=== PATIENT | female | born 1970 | race Caucasian/White ===

== ENCOUNTER 2017-08-04 01:47 | Emergency (ER) | payer OTHER ==
[~2017-08-04] VITALS: Ht 160 cm; Wt 72.6 kg
--- NOTE | 2017-08-04 02:42 | NUR ---
DR PANCHO SALAZAR MD AT BEDSIDE FOR MSE.
--- NOTE | 2017-08-04 02:46 | NUR ---
PT C/O SOB AND "CHEST TIGHTNESS". STATES SHE HAS A HX OF CHF AND HAD A MITRAL VALVE REPLACEMENT, AND IS TO UNDERGO A TRICUSPID VALVE REPLACEMENT SOMETIME IN THE FUTURE. PT PLACED ON MONITOR AND PULSE OX. EKG COMPLETED PER ORDER. PT IS CURRENTLY IN BED IN A POSITION OF COMFORT, TALKING TO FRIEND. NO SIGNS OF DISTRESS NOTED AT THIS TIME.
--- NOTE | 2017-08-04 02:51 | NUR ---
LAB AT PT BEDSIDE FOR BLOOD DRAW.
--- NOTE | 2017-08-04 03:02 | NUR ---
XRAY AT PT BEDSIDE.
[2017-08-04 03:12] LABS: POTASSIUM 3.3 mmol/L (3.5-5.1)
[2017-08-04 03:14] LABS: BASOPHILS # (AUTO) 0.2 K/uL (0.0-8.0); BASOPHILS % (AUTO) 1.4 % (0.0-2.0); EOSINOPHILS # (AUTO) 0.8 K/uL (0.0-0.7); EOSINOPHILS % (AUTO) 7.1 % (0.0-7.0); HEMATOCRIT 43.9 % (31.2-41.9); HEMOGLOBIN 14.7 g/dL (10.9-14.3); LYMPHOCYTES # (AUTO) 3.5 K/uL (20.0-40.0); LYMPHOCYTES % (AUTO) 29.6 % (20.5-51.5); MEAN CORPUSCULAR HGB CONC 33 g/dL (32.3-35.6); MEAN CORPUSCULAR VOLUME 86.9 fL (75.5-95.3); MONOCYTES # (AUTO) 0.7 K/uL (2.0-10.0); MONOCYTES % (AUTO) 6.3 % (0.0-11.0); NEUTROPHILS # (AUTO) 6.5 K/uL (1.8-8.9); NEUTROPHILS % (AUTO) 55.6 % (38.5-71.5); PLATELET COUNT (AUTO) 221 K/uL (179-408); RED BLOOD CELL COUNT(AUTO) 5.06 MIL/uL (3.63-4.92); WHITE BLOOD COUNT (AUTO) 11.7 K/uL (3.8-11.8)
[2017-08-04 03:25] LABS: BILIRUBIN,DIRECT 0.1 mg/dL (0.0-0.2); BILIRUBIN,TOTAL 0.4 mg/dL (0.2-1.0); TOTAL PROTEIN, SERUM 7.8 g/dL (6.4-8.2)
[2017-08-04] MEDS ORDERED: predniSONE 50 MG TABLET ONE (03:56)
--- NOTE | 2017-08-04 03:59 | NUR ---
Patient discharged to home in stable conditon. Written and verbal after care instructions given. Patient verbalizes understanding of instructions. Pt ambulated from ER w/ steady gait. Denies SOB at this time. reathing even and unlabored. Pt took all personal belongings.
[2017-08-04] MEDS ORDERED: predniSONE 50 MG TABLET PO ONE (04:00)
[2017-08-04 04:04] VITALS: BP 116/64
== END 2017-08-04 04:05 | disposition home or self-care (01) ==
LOC: ER 02:20
DX: J45.909 Unspecified asthma, uncomplicated (principal); I09.9 Rheumatic heart disease, unspecified; I11.0 Hypertensive heart disease with heart failure; I50.9 Heart failure, unspecified; Z88.5 Allergy status to narcotic agent
CPT/HCPCS: 36415; 70030-TC; 71045; 85025; 85730; 93005; A4663; J7512

== ENCOUNTER 2017-08-09 15:07 | Inpatient (IN) | payer OTHER ==
[~2017-08-09] VITALS: Ht 154.9 cm; Wt 89.6 kg
[2017-08-09] MEDS ORDERED: WARF-58 PO (15:38)
[2017-08-09] MEDS ORDERED: KETAMINE HCL 500 MG/10 ML INJ IV ONE ×2 (15:45→17:00)
[2017-08-09] MEDS ORDERED: KETAMINE HCL 500 MG/10 ML INJ ONE (15:48)
--- NOTE | 2017-08-09 16:01 | NUR ---
PT IS IN ROOM #2B. DR DELEON EVALUATED THE PT.
[2017-08-09 16:06] LABS: BASOPHILS # (AUTO) 0.1 K/uL (0.0-8.0); BASOPHILS % (AUTO) 0.9 % (0.0-2.0); EOSINOPHILS # (AUTO) 0.4 K/uL (0.0-0.7); HEMATOCRIT 41.2 % (31.2-41.9); HEMOGLOBIN 13.8 g/dL (10.9-14.3); LYMPHOCYTES # (AUTO) 3.1 K/uL (20.0-40.0); LYMPHOCYTES % (AUTO) 23.4 % (20.5-51.5); MEAN CORPUSCULAR HEMOGLOBIN 28.6 uug (24.7-32.8); MEAN CORPUSCULAR HGB CONC 33 g/dL (32.3-35.6); MEAN CORPUSCULAR VOLUME 85.9 fL (75.5-95.3); MONOCYTES # (AUTO) 0.7 K/uL (2.0-10.0); NEUTROPHILS # (AUTO) 8.9 K/uL (1.8-8.9); NEUTROPHILS % (AUTO) 67.7 % (38.5-71.5); PLATELET COUNT (AUTO) 258 K/uL (179-408); WHITE BLOOD COUNT (AUTO) 13.1 K/uL (3.8-11.8)
[2017-08-09 16:13] LABS: POTASSIUM 3.9 mmol/L (3.5-5.1)
[2017-08-09 16:18] LABS: BILIRUBIN,DIRECT 0.1 mg/dL (0.0-0.2); BILIRUBIN,TOTAL 0.4 mg/dL (0.2-1.0); TOTAL PROTEIN, SERUM 7.2 g/dL (6.4-8.2)
[2017-08-09] MEDS ORDERED: FURO80TA87 PO (16:22)
[2017-08-09] MEDS ORDERED: POTA10TA15 PO (16:22)
[2017-08-09] MEDS ORDERED: FENTANYL CITRATE 100 MCG/2 ML AMPUL ONE ×2 (16:57→17:29)
[2017-08-09] MEDS ORDERED: FENTANYL CITRATE 100 MCG/2 ML AMPUL IV ONE ×2 (17:00→17:30)
--- NOTE | 2017-08-09 17:00 | NUR ---
DR DELEON TALKED TO PT'S RELATIVES AND TO THE PT TO EXPLAIN BLOOD TESTS RESULTS.
--- NOTE | 2017-08-09 18:39 | NUR ---
RECEIVED CALL FROM CORETTA LUTZING DR. SANTIAGO NOW ON-CALL DOCTOR.
[2017-08-09] MEDS ORDERED: LORAZEPAM 2 MG/1 ML VIAL ONE (18:44)
[2017-08-09] MEDS ORDERED: LORAZEPAM 2 MG/1 ML VIAL IV ONE (18:45)
--- NOTE | 2017-08-09 19:27 | NUR ---
REPORT GIVEN TO CHARGE HISTOTECHNOLOGIST RN.
--- NOTE | 2017-08-09 19:58 | NUR ---
REPORT GIVEN TO M/S RN. PT WAS TRANSFERED TO ROOM #218.
--- NOTE | 2017-08-09 20:20 | NUR ---
NEW ADMIT FROM ER, PATIENT IS VERY LETHARGIC AND DROWSY. AROUSES TO NAME BUT UNABLE TO ANSWER QUESTIONS. SAFETY AND COMFORT MEASURES IN PLACE, CALL LIGHT LEFT WITHIN PATIENT'S REACH. BED IN LOW POSITION WITH ALARM ON. WILL CONTINUE TO MONITOR PATIENT
[2017-08-09 20:40] VITALS: BP 125/88
[2017-08-09] MEDS ORDERED: Z GUARD REMEDY PASTE 57 GM TUBE TOP PRN (20:45)
[2017-08-09] MEDS ORDERED: MAGNESIUM HYDROXIDE 30 ML LIQUID UDC PO PRN (20:45)
[2017-08-10] MEDS: FENTANYL CITRATE 100 MCG/2 ML AMPUL IV PRN ×7 (00:45→21:44)
--- NOTE | 2017-08-10 02:30 | NUR ---
Patient's friend called requesting for patient to be given Fentanyl every 3 hours regardless of patient's state of drowsiness. This nurse was unable to administer meds per friend's request bp 89/55. Will continue to monitor patient
[2017-08-10 04:00] VITALS: BP 110/65
[2017-08-10 06:51] LABS: BASOPHILS # (AUTO) 0.1 K/uL (0.0-8.0); BASOPHILS % (AUTO) 0.4 % (0.0-2.0); EOSINOPHILS % (AUTO) 0.2 % (0.0-7.0); LYMPHOCYTES # (AUTO) 2.6 K/uL (20.0-40.0); LYMPHOCYTES % (AUTO) 13.3 % (20.5-51.5); MEAN CORPUSCULAR HEMOGLOBIN 29.1 uug (24.7-32.8); MEAN CORPUSCULAR HGB CONC 34 g/dL (32.3-35.6); MEAN CORPUSCULAR VOLUME 86.5 fL (75.5-95.3); MONOCYTES # (AUTO) 1.5 K/uL (2.0-10.0); MONOCYTES % (AUTO) 7.5 % (0.0-11.0); NEUTROPHILS # (AUTO) 15.2 K/uL (1.8-8.9); NEUTROPHILS % (AUTO) 78.6 % (38.5-71.5); PLATELET COUNT (AUTO) 300 K/uL (179-408); RED BLOOD CELL COUNT(AUTO) 3.88 MIL/uL (3.63-4.92)
[2017-08-10 07:02] LABS: HEMATOCRIT 33.6 % (31.2-41.9); HEMOGLOBIN 11.3 g/dL (10.9-14.3); WHITE BLOOD COUNT (AUTO) 19.3 K/uL (3.8-11.8)
[2017-08-10 07:12] LABS: BILIRUBIN,TOTAL 0.6 mg/dL (0.2-1.0); CREATININE 1.6 mg/dL (0.6-1.3); MAGNESIUM 2.3 mg/dL (1.8-2.4); PHOSPHOROUS 5.3 mg/dL (2.5-4.9); POTASSIUM 4.9 mmol/L (3.5-5.1); TOTAL PROTEIN, SERUM 6.8 g/dL (6.4-8.2)
--- NOTE | 2017-08-10 07:20 | NUR ---
Received report from pharmacy student nurse, patient in bed asleep, but arousable. No distress noted at this time, bed in low position, side rails up x2. Bed alarm set.
[2017-08-10 08:10] LABS: THYROID STIMULATING HORMONE 0.794 mIU/mL (0.358-3.740)
[2017-08-10] MEDS: POTASSIUM CHLORIDE 20 MEQ TAB.PRT.SR PO SCH (08:31)
[2017-08-10] MEDS: ONDANSETRON 4 MG/2 ML VIAL IV PRN (08:39)
[2017-08-10] MEDS ORDERED: FUROSEMIDE 80 MG TABLET PO SCH (09:00)
[2017-08-10] MEDS ORDERED: POTASSIUM CHLORIDE 10 MEQ TAB.PRT.SR PO SCH (09:00)
[2017-08-10 09:25] VITALS: BP 99/64
[2017-08-10] MEDS ORDERED: IV NS 1000 ML 1,000 ML IV ONE (10:30)
[2017-08-10 11:02] VITALS: BP 102/69
[2017-08-10] MEDS ORDERED: FENTANYL CITRATE 100 MCG/2 ML AMPUL IV STA (12:17)
--- NOTE | 2017-08-10 13:00 | NUR ---
Patients family has a lot of inquiries based on patients accusations that no pain medication is being given. Patients family was assured that medications were being given every 2 hours, and that the doctor is following her closely. Labs orders for H/H follow up, and INR being monitored daily.
[2017-08-10 14:02] LABS: HEMATOCRIT 27.6 % (31.2-41.9); HEMOGLOBIN 9.3 g/dL (10.9-14.3)
[2017-08-10 14:49] VITALS: BP 93/54
[2017-08-10 15:15] VITALS: BP 108/66
[2017-08-10] MEDS ORDERED: WARFARIN SODIUM 7.5 MG TABLET PO SCH (17:00)
--- NOTE | 2017-08-10 18:41 | NUR ---
PATIENTS MOOD HAS BEEN LABILE THROUGHOUT THE DAY. PATIENT SCREAMING AND THROWING ITEMS, AND THEN BEING FAST ASLEEP. PATIENT FREQUENTLY ASKS FOR PAIN MEDICATION REGARDLESS OF TIME PAIN MEDICATION WAS ADMINISTERED. CURRENTLY PATIENT IS IN BED, NO DISTRESS NOTED, BED IN LOW POSITION, SIDE RAILS UP X2, BOYFRIEND AT BEDSIDE. BED ALARM ON.
[2017-08-10 20:00] VITALS: BP 99/62
--- NOTE | 2017-08-10 20:00 | NUR ---
OBSERVED PT TO BE LETHARGIC AND MOANING OF PAIN, BUT EASILY AROUSABLE TO VERBAL AND STIMULI. PT CONTINUES TO ASK FOR MORE PAIN MEDICATION, REGARDLESS OF RECENT ADMINISTRATION OF MEDICATION. ON 2L AND NOTED TO BE 95%, PT PROVIDED WITH RELAXATION TECHNIQUES AND ENCOURAGED TO DEEP BREATHE. BED IN LOW, LOCKED POSITION. BED ALARM ON. CALL LIGHT WITHIN REACH. WILL CONTINUE TO MONITOR.
[2017-08-10 20:19] LABS: HEMATOCRIT 24.5 % (31.2-41.9); HEMOGLOBIN 8.1 g/dL (10.9-14.3)
--- NOTE | 2017-08-10 22:00 | NUR ---
TWINE REELING MACHINE OPERATOR FIBERGLASS INSULATION INSTALLER MADE AWARE OF RECENT HGB LAB VALUE
[2017-08-11] VITALS (41 sets, daily range): BP systolic 89–149; BP diastolic 44–76
[2017-08-11] MEDS: FENTANYL CITRATE 100 MCG/2 ML AMPUL IV PRN ×5 (00:10→21:15)
--- NOTE | 2017-08-11 05:10 | NUR ---
LAB OBSERVED TO BE IN ROOM AT THIS TIME. PT IS STILL C/O SEVERE PAIN ON ABDOMINAL AREA. PAIN MANAGEMENT PROVIDED ORDERED THROUGHOUT SHIFT. BLOOD PRESSURE WNL. NO RESPIRATORY DISTRESS NOTED. BED IN LOW, LOCKED POSITION. BED ALARM ON. CALL LIGHT WITHIN REACH. WILL CONTINUE TO MONITOR.
[2017-08-11] MEDS: ONDANSETRON 4 MG/2 ML VIAL IV PRN ×2 (05:21→11:38)
[2017-08-11 07:39] LABS: CREATININE 3.2 mg/dL (0.6-1.3); MAGNESIUM 2.7 mg/dL (1.8-2.4); PHOSPHOROUS 7.7 mg/dL (2.5-4.9); POTASSIUM 5.9 mmol/L (3.5-5.1)
[2017-08-11 07:41] LABS: BASOPHILS # (AUTO) 0.2 K/uL (0.0-8.0); BASOPHILS % (AUTO) 0.6 % (0.0-2.0); LYMPHOCYTES # (AUTO) 3.6 K/uL (20.0-40.0); LYMPHOCYTES % (AUTO) 9.7 % (20.5-51.5); MEAN CORPUSCULAR HEMOGLOBIN 28.9 uug (24.7-32.8); MEAN CORPUSCULAR HGB CONC 33 g/dL (32.3-35.6); MEAN CORPUSCULAR VOLUME 88.3 fL (75.5-95.3); MONOCYTES # (AUTO) 3.4 K/uL (2.0-10.0); NEUTROPHILS # (AUTO) 30.1 K/uL (1.8-8.9); NEUTROPHILS % (AUTO) 80.7 % (38.5-71.5); PLATELET COUNT (AUTO) 269 K/uL (179-408)
--- NOTE | 2017-08-11 07:47 | NUR ---
RECEIVED SHIFT REPORT FROM IT COMPLIANCE MANAGER NURSE. PATIENT IS A/OX3. OMA IS THE AND CONTINUOUSLY REQUESTS TO SPEAK WITH THE DOCTOR. WILL NOTIFY MD AND PROVIDE CONTACT. STABLE CONDITION AT THIS TIME. NO S/S OF DISTRESS. COMPLAINING OF ABDOMINAL PAIN. PAIN MANAGEMENT WILL BE PROVIDED. BED IN LOCKED/LOW POSITION. SIDE RAILS UP X2, BED ALARM ON, CALL LIGHT WITHIN REACH.
[2017-08-11 08:16] LABS: HEMOGLOBIN 6.6 g/dL (10.9-14.3); WHITE BLOOD COUNT (AUTO) 37.3 K/uL (3.8-11.8)
--- NOTE | 2017-08-11 08:16 | NUR ---
CRITICAL LAB VALUE REPORTED BY LAB: HGB 6.6 HCT 20.3 READ-BACK INITIATED. MD CONTACTED.
[2017-08-11 08:17] LABS: HEMATOCRIT 20.3 % (31.2-41.9)
[2017-08-11] MEDS: POTASSIUM CHLORIDE 20 MEQ TAB.PRT.SR PO SCH (09:00)
--- NOTE | 2017-08-11 09:00 | NUR ---
MD ORDERED TO TRANSFUSE 2 UNITS OF PRBCs and 1 UNIT OF FRESH FROZEN PLASMA. BLOOD TRANSFUSION CONSENT WILL BE OBTAINED.
--- NOTE | 2017-08-11 09:24 | NUR ---
NON-ADMINISTRATION POTASSIUM 40 MEQ (2 TABLETS) - PATIENT IS LETHARGIC, ASPIRATION PRECAUTION.
[2017-08-11 10:06] LABS: BAND % (MANUAL) 3 % (0-10); LYMPHOCYTES % (MANUAL) 19 % (20-40); MONOCYTES % (MANUAL) 5 % (2-10); NEUTROPHILS % (MANUAL) 73 % (42-75)
--- NOTE | 2017-08-11 11:00 | NUR ---
PATIENT UNSTABLE. BLOOD PRESSURE OF 89/45. MD NOTIFIED. MD ORDERED TO HAVE PATIENT TRANSFERRED INTO CCU. MD PROVIDED ORDERS: BAE INSERTION PICC-LINE INSERTION IV NS 1,OOO ML BOLUS TEST, SERUM.
[2017-08-11] MEDS ORDERED: IV NS 1000 ML 1,000 ML IV ONE (11:15)
[2017-08-11] MEDS ORDERED: PIPERACILLIN/TAZO 0.75 G in IV DEXTROSE 5% 50 ML IV PRN (11:30)
[2017-08-11] MEDS ORDERED: VANCOMYCIN IV 1 G in PREMIXED 0 EACH IV ONE (11:30)
--- NOTE | 2017-08-11 12:00 | NUR ---
Clinical Pharmacy Note: Vancomycin Pharmacy to Dose Subjective: To start vancomycin in this 47 y/o female for indication of "suspected infection." Pt in for possible active bleed/hematoma. Pt wbc and Scr decompensated drastically overnight, has had recent URI/coughing. Started vanco and zosyn Objective: height 154 cm weight 73 kg BMI 30.6 BUN 48 Scr 3.2 (ARF, baseline 1.0) Wbc 37.3 temp 98.6 Assessment/Plan Due to compromised renal fxn, will dose per level. Dosed 1gm vanco today at 1130. Random ordered with am labs tomorrow. Will check random and redose as needed. Will follow
[2017-08-11 12:14] LABS: CREATININE 3.3 mg/dL (0.6-1.3); POTASSIUM 5.8 mmol/L (3.5-5.1)
[2017-08-11 12:18] LABS: MAGNESIUM 2.1 mg/dL (1.8-2.4); PHOSPHOROUS 6.9 mg/dL (2.5-4.9)
[2017-08-11] MEDS: PIPERACILLIN/TAZOBACTAM/D5W 2.25 G in PREMIXED 1 EACH IV SCH ×3 (12:25→23:51)
[2017-08-11] MEDS ORDERED: Z GUARD REMEDY PASTE 57 GM TUBE TOP PRN (12:30)
--- NOTE | 2017-08-11 12:30 | NUR ---
Pt.went to CT-Scan,under card.monitoring,tolerated well.
[2017-08-11 12:45] LABS: *BILIRUBIN,URIN NEGATIVE (NEGATIVE); *BLOOD, URINE 1+ (NEGATIVE); *CLARITY,URINE CLEAR (CLEAR); *COLOR,URINE YELLOW (YELLOW); *KETONES,URINE NEGATIVE (NEGATIVE); *PROTEIN,URINE 1+ (NEGATIVE); *UROBILINOGEN,URINE 0.2 E.U./dl (NORMAL); LEUKOCYTE ESTERASE ,URINE NEGATIVE (NEGATIVE); NITRITE, URINE NEGATIVE (NEGATIVE); PH,URINE 5.5 (5.0-8.0); UGLUCOSE NEGATIVE (NEGATIVE)
--- NOTE | 2017-08-11 12:45 | NUR ---
Pt.back from CT,DNP:Jay Feliz at bedside,for PICC Line placement,time out done.
[2017-08-11 13:06] LABS: BACTERIA,URINE FEW /HPF (NONE SEEN); SQUAMOUS EPITHELIAL CELL,UR MANY /HPF (NONE SEEN)
[2017-08-11] MEDS ORDERED: SODIUM POLYSTYRENE SULFONATE 15 G/60 ML LIQUID UDC PO ONE (13:15)
--- NOTE | 2017-08-11 13:15 | NUR ---
Pt.was seen by ,was notified about EKG changes-ST&T abnormality .
--- NOTE | 2017-08-11 13:20 | NUR ---
Pt.mom at bedside,updated with pt.status and plan of care by DNP:Jay Feliz.
--- NOTE | 2017-08-11 13:25 | NUR ---
First unit of blood started,pt.tolerated well.
[2017-08-11 13:27] LABS: *URINE TOTAL PROTEIN RANDOM 40.8 mg/dL (<150/24HR)
[2017-08-11] MEDS: IV LACTATED RINGERS SOLUTION 1,000 ML IV PRN ×2 (13:39→22:10)
[2017-08-11] MEDS ORDERED: BUMETANIDE INJ 4 MG in IV DEXTROSE 5% 24 ML IV ONE (14:00)
--- NOTE | 2017-08-11 18:30 | NUR ---
Family members at bedside,updated with pt.condition and plan of care.
--- NOTE | 2017-08-11 19:57 | NUR ---
DNP:Jay Feliz was notified that planed Vitamin K still was not ordered,ask to add lab INR to 2030 blood draw,will follow up.
--- NOTE | 2017-08-11 20:00 | NUR ---
Resting in bed, drowsy and arousable. Plans of care discussed. Pt needing a lot of reassurance about condition. Resp. easy and regular. Readily desaturates as low as 86% when pt takes O2 off, needing reminder to keep O2 on at all times. NPO, c/o thirst. Oral care frequently done. CVP monitoring initiated, initial reading 3. Main IV at 150 ml/hr, Bumex drip 5 ml/hr x 1 bag. Second unit PRBCs completed at 1924 and no transfusion reactions noted. For repeat lab works at 2029.
[2017-08-11 20:59] LABS: BASOPHILS # (AUTO) 0.1 K/uL (0.0-8.0); BASOPHILS % (AUTO) 0.3 % (0.0-2.0); HEMATOCRIT 21.6 % (31.2-41.9); LYMPHOCYTES # (AUTO) 1.9 K/uL (20.0-40.0); LYMPHOCYTES % (AUTO) 7.9 % (20.5-51.5); MEAN CORPUSCULAR HEMOGLOBIN 29.2 uug (24.7-32.8); MEAN CORPUSCULAR HGB CONC 34 g/dL (32.3-35.6); MEAN CORPUSCULAR VOLUME 85.2 fL (75.5-95.3); MONOCYTES # (AUTO) 2.2 K/uL (2.0-10.0); MONOCYTES % (AUTO) 9.1 % (0.0-11.0); NEUTROPHILS # (AUTO) 20.2 K/uL (1.8-8.9); NEUTROPHILS % (AUTO) 82.7 % (38.5-71.5); PLATELET COUNT (AUTO) 146 K/uL (179-408); RED BLOOD CELL COUNT(AUTO) 2.54 MIL/uL (3.63-4.92); WHITE BLOOD COUNT (AUTO) 24.5 K/uL (3.8-11.8)
--- NOTE | 2017-08-11 21:00 | NUR ---
Pt had visitors that need to be instructed not to agitate pt when asleep. Will need to limit visitors per unit policy. Will endorse to next shift.
[2017-08-11 21:09] LABS: CREATININE 2.2 mg/dL (0.6-1.3); HEMOGLOBIN 7.4 g/dL (10.9-14.3); MAGNESIUM 1.7 mg/dL (1.8-2.4); PHOSPHOROUS 4.3 mg/dL (2.5-4.9); POTASSIUM 4.1 mmol/L (3.5-5.1)
[2017-08-11] MEDS: Z GUARD REMEDY PASTE 57 GM TUBE TOP SCH (21:12)
[2017-08-11] MEDS ORDERED: FUROSEMIDE 40 MG/4 ML VIAL IV ONE (21:15)
--- NOTE | 2017-08-11 21:25 | NUR ---
Lab values improved. Noted new orders from Dr. Leatha Feliz. IV Lasix 40 mg given. Pt to receive more transfusions tonight, blood bank notified. Fentanyl IV given for c/o generalized and abd. pain. Nursing comfort measures observed at all times.
--- NOTE | 2017-08-11 22:22 | NUR ---
Started transfusion of FFP soon as available, PRBCs still being prepared by Blood Bank. See blood transfusion record.
[2017-08-12] VITALS (35 sets, daily range): BP systolic 109–141; BP diastolic 57–87
[2017-08-12 00:38] LABS: BASOPHILS % (AUTO) 0.2 % (0.0-2.0); EOSINOPHILS % (AUTO) 0.1 % (0.0-7.0); HEMATOCRIT 22.4 % (31.2-41.9); HEMOGLOBIN 7.9 g/dL (10.9-14.3); LYMPHOCYTES % (AUTO) 8.3 % (20.5-51.5); MEAN CORPUSCULAR HEMOGLOBIN 29.6 uug (24.7-32.8); MEAN CORPUSCULAR HGB CONC 35 g/dL (32.3-35.6); MEAN CORPUSCULAR VOLUME 83.7 fL (75.5-95.3); MONOCYTES # (AUTO) 2.1 K/uL (2.0-10.0); MONOCYTES % (AUTO) 8.9 % (0.0-11.0); NEUTROPHILS % (AUTO) 82.5 % (38.5-71.5); PLATELET COUNT (AUTO) 161 K/uL (179-408); RED BLOOD CELL COUNT(AUTO) 2.68 MIL/uL (3.63-4.92); WHITE BLOOD COUNT (AUTO) 24.3 K/uL (3.8-11.8)
[2017-08-12 00:51] LABS: CREATININE 2.1 mg/dL (0.6-1.3); MAGNESIUM 1.9 mg/dL (1.8-2.4); PHOSPHOROUS 4.9 mg/dL (2.5-4.9); POTASSIUM 3.5 mmol/L (3.5-5.1)
--- NOTE | 2017-08-12 01:15 | NUR ---
Received unit of FFP with no ill effects. Started PRBCs transfusion, in progress. Close monitoring continues. Dozing at periodic intervals.
[2017-08-12] MEDS: FENTANYL CITRATE 100 MCG/2 ML AMPUL IV PRN ×6 (02:24→20:43)
--- NOTE | 2017-08-12 03:15 | NUR ---
Above PRBCs completed without adverse effects, followed by another unit of PRBCs. Please see VS and Transfusion Flowsheet. Received another IV Fentanyl dose at 0225 for abdominal and generalized pain. Frequent repositioning and nursing comfort measures observed at all times.
--- NOTE | 2017-08-12 05:15 | NUR ---
Completed 4th unit PRBCs since CCU admission with no adverse effects. Also total 3 units FFP since transfer. No obvious bleeding noted. Continues to c/o extreme thirst, frequent oral care done and frequent explanations of rationale to observe NPO. Stable VS and rhythm. Will continue to monitor closely.
[2017-08-12] MEDS: PIPERACILLIN/TAZOBACTAM/D5W 2.25 G in PREMIXED 1 EACH IV SCH ×4 (05:56→23:50)
--- NOTE | 2017-08-12 07:15 | NUR ---
report received from Glen, 47yr old female was admitted on 08/09/17 for abdominal pain to med surg. was transferred to CCU on on 08/11 for persistent abd pain and low bp. patient has an IV fluid of LR at 150ml/hr via right upper arm. cvp reading 10-15mm hg. rosales cathter intact, urine much improved.ekg is sinus rhythm. bp stable. Addendum: 08/12/17 at 1646 by LUPE CALLAWAY RN Amended: Links added.
[2017-08-12 07:32] LABS: CREATININE 1.8 mg/dL (0.6-1.3); POTASSIUM 3.5 mmol/L (3.5-5.1); VANCOMYCIN,RANDOM 6.9 ug/mL (18.0-26.0)
--- NOTE | 2017-08-12 08:40 | NUR ---
seen by dr bruner. orders received. Addendum: 08/12/17 at 1705 by LUPE CALLAWAY RN Amended: Links added.
--- NOTE | 2017-08-12 08:48 | NUR ---
Clinical Pharmacy Note: Vancomycin Pharmacy to Dose Subjective: To continue vancomycin in this 47 y/o female for indication of "suspected infection.- leukocytosis" Objective: height 154 cm weight 73 kg BMI 30.6 BUN 39 Scr 1.8 (ARF, baseline 1.0) Wbc 24.3 temp 99.6 Vanco random level: 6.9 (post vanco 1gm IVPB x1 dose yesterday at 1130) Assessment/Plan Due to compromised renal fxn, will dose per level. Since vanco random is 6.9 mcg/ml, will give 1gm vanco today at 0900. Random ordered with am labs tomorrow. Will check random and re-dose as needed. Will follow
[2017-08-12] MEDS ORDERED: VANCOMYCIN IV 1 G in PREMIXED 0 EACH IV ONE (09:00)
[2017-08-12] MEDS: DIAZEPAM 5 MG TABLET PO PRN (09:01)
[2017-08-12] MEDS: ONDANSETRON 4 MG/2 ML VIAL IV PRN ×3 (09:05→22:58)
--- NOTE | 2017-08-12 09:05 | NUR ---
medicated for abdominal pain. scale 8/10. also medicated for nausea and agitation Addendum: 08/12/17 at 1649 by LUPE CALLAWAY RN Amended: Links added. Addendum: 08/12/17 at 1651 by LUPE CALLAWAY RN Amended: Links added. Addendum: 08/12/17 at 1652 by LUPE CALLAWAY RN Amended: Links added. Addendum: 08/12/17 at 1703 by LUPE CALLAWAY RN Amended: Links added. Addendum: 08/12/17 at 1704 by LUPE CALLAWAY RN Amended: Links added. Addendum: 08/12/17 at 1705 by LUPE CALLAWAY RN Amended: Links added.
[2017-08-12] MEDS: Z GUARD REMEDY PASTE 57 GM TUBE TOP SCH ×2 (09:06→20:42)
--- NOTE | 2017-08-12 10:00 | NUR ---
seen by dr smith. orders received ,patient started on clear liquids Addendum: 08/12/17 at 1704 by LUPE CALLAWAY RN Amended: Links added. Addendum: 08/12/17 at 1705 by LUPE CALLAWAY RN Amended: Links added.
[2017-08-12 10:35] LABS: BASOPHILS % (AUTO) 0.2 % (0.0-2.0); HEMATOCRIT 25.8 % (31.2-41.9); LYMPHOCYTES % (AUTO) 9.8 % (20.5-51.5); MEAN CORPUSCULAR HEMOGLOBIN 28.1 uug (24.7-32.8); MEAN CORPUSCULAR HGB CONC 35 g/dL (32.3-35.6); MEAN CORPUSCULAR VOLUME 80.2 fL (75.5-95.3); MONOCYTES # (AUTO) 1.5 K/uL (2.0-10.0); MONOCYTES % (AUTO) 7.7 % (0.0-11.0); NEUTROPHILS # (AUTO) 16.4 K/uL (1.8-8.9); NEUTROPHILS % (AUTO) 82.3 % (38.5-71.5); PLATELET COUNT (AUTO) 126 K/uL (179-408); RED BLOOD CELL COUNT(AUTO) 3.22 MIL/uL (3.63-4.92); WHITE BLOOD COUNT (AUTO) 19.9 K/uL (3.8-11.8)
[2017-08-12 11:05] LABS: CREATININE 1.7 mg/dL (0.6-1.3); MAGNESIUM 2.1 mg/dL (1.8-2.4); PHOSPHOROUS 3.7 mg/dL (2.5-4.9); POTASSIUM 3.5 mmol/L (3.5-5.1)
[2017-08-12] MEDS: IV LACTATED RINGERS SOLUTION 1,000 ML IV PRN ×2 (11:21→18:32)
--- NOTE | 2017-08-12 15:24 | NUR ---
medicated for abdominal pain scale 10. and also medicated for nausea Addendum: 08/12/17 at 1652 by LUPE CALLAWAY RN Amended: Links added. Addendum: 08/12/17 at 1703 by LUPE CALLAWAY RN Amended: Links added. Addendum: 08/12/17 at 1704 by LUPE CALLAWAY RN Amended: Links added. Addendum: 08/12/17 at 1705 by LUPE CALLAWAY RN Amended: Links added.
--- NOTE | 2017-08-12 16:50 | NUR ---
medicated for abdominal pain scale 12/09. antinausea medication not due yet Addendum: 08/12/17 at 1651 by LUPE CALLAWAY RN Amended: Leo added. Addendum: 08/12/17 at 1652 by LUPE CALLAWAY RN Amended: Leo added. Addendum: 08/12/17 at 1703 by LUPE CALLAWAY RN Amended: Links added. Addendum: 08/12/17 at 1704 by LUPE CALLAWAY RN Amended: Links added. Addendum: 08/12/17 at 1705 by LUPE CALLAWAY RN Amended: Links added.
--- NOTE | 2017-08-12 17:03 | NUR ---
seen by dr escobar who signed off. Patient improving and not going to surgery Addendum: 08/12/17 at 1703 by LUPE CALLAWAY RN Amended: Leo added. Addendum: 08/12/17 at 1704 by LUPE CALLAWAY RN Amended: Links added. Addendum: 08/12/17 at 1705 by LUPE CALLAWAY RN Amended: Links added.
[2017-08-12] MEDS ORDERED: LACTULOSE 20 G/30 ML LIQUID UDC PO PRN (18:45)
[2017-08-12] MEDS ORDERED: FLEET ENEMA 133 ML BOTTLE RC PRN (18:45)
--- NOTE | 2017-08-12 20:00 | NUR ---
Drowsy but arousable. When awake, tends to get restless, anxious and calling out for mother or nurse. Plans of care explained to pt. Needs frequent reinforcements of teachings. Can get uncooperative. Please see CCU flowsheet for full assessment and clinical data.
[2017-08-13] VITALS (24 sets, daily range): BP systolic 101–144; BP diastolic 47–81
--- NOTE | 2017-08-13 00:01 | NUR ---
Up assisted to bedside chair per request; steady on feet. Spent sometime about 30 min. on chair and tolerated well.
[2017-08-13] MEDS: IV LACTATED RINGERS SOLUTION 1,000 ML IV PRN ×3 (01:20→19:52)
[2017-08-13] MEDS: FENTANYL CITRATE 100 MCG/2 ML AMPUL IV PRN ×8 (01:23→23:03)
[2017-08-13 05:20] LABS: HEMATOCRIT 26.9 % (31.2-41.9); HEMOGLOBIN 9.1 g/dL (10.9-14.3); LYMPHOCYTES # (AUTO) 1.2 K/uL (20.0-40.0); LYMPHOCYTES % (AUTO) 6.6 % (20.5-51.5); MEAN CORPUSCULAR HEMOGLOBIN 27.7 uug (24.7-32.8); MEAN CORPUSCULAR HGB CONC 34 g/dL (32.3-35.6); MEAN CORPUSCULAR VOLUME 81.9 fL (75.5-95.3); MONOCYTES # (AUTO) 1.3 K/uL (2.0-10.0); MONOCYTES % (AUTO) 7.1 % (0.0-11.0); NEUTROPHILS # (AUTO) 15.4 K/uL (1.8-8.9); NEUTROPHILS % (AUTO) 86.3 % (38.5-71.5); PLATELET COUNT (AUTO) 140 K/uL (179-408); RED BLOOD CELL COUNT(AUTO) 3.28 MIL/uL (3.63-4.92); WHITE BLOOD COUNT (AUTO) 17.8 K/uL (3.8-11.8)
[2017-08-13] MEDS: PIPERACILLIN/TAZOBACTAM/D5W 2.25 G in PREMIXED 1 EACH IV SCH ×2 (05:23→11:03)
[2017-08-13 05:26] LABS: CREATININE 1.1 mg/dL (0.6-1.3); MAGNESIUM 2.2 mg/dL (1.8-2.4); PHOSPHOROUS 3.1 mg/dL (2.5-4.9); POTASSIUM 3.5 mmol/L (3.5-5.1)
--- NOTE | 2017-08-13 06:00 | NUR ---
Uneventful night. Sleeping at periodic intervals. Moans and cries when awake for reasons of pain/discomfort or need for food/drink. All needs attended. Frequently reassured. Nursing comfort measures observed at all times. Please see EMar for med administration times and CCU flowsheet for trends and clinical data.
[2017-08-13] MEDS ORDERED: VANCOMYCIN IV 1 G in PREMIXED 0 EACH IV ONE (09:00)
[2017-08-13] MEDS: Z GUARD REMEDY PASTE 57 GM TUBE TOP SCH ×2 (09:33→19:52)
--- NOTE | 2017-08-13 10:00 | NUR ---
Dr. Velázquez here to see pt. Full report given. New orders received and carried out.
[2017-08-13] MEDS: HEPARIN/D5W DRIP 500 ML IV PRN (11:00)
--- NOTE | 2017-08-13 15:33 | NUR ---
Clinical Pharmacy Note: Vancomycin Pharmacy to Dose Subjective: To continue vancomycin in this 47 y/o female for indication of "suspected infection.- leukocytosis" Objective: height 154 cm weight 83 kg BMI 30.6 BUN 28 Scr 1.1 Wbc 17.8 temp 98.3 Vanco random level: 6.4 (post vanco 1gm IVPB x1 dose yesterday at 0900) Assessment/Plan Since renal function is stable, will start Vancomycin 1 gram IV every 17hrs(second dose tomorrow at 0200) and draw trough by 4th dose(not ordered yet) for expected trough around 15. Will closely monitor renal function to adjust the dose if needed. Will follow daily.
[2017-08-13] MEDS: PIPERACILLIN/TAZOBACTAM/D5W 50 ML IV SCH ×2 (18:14→23:16)
[2017-08-13] MEDS: DIAZEPAM 5 MG TABLET PO PRN (19:50)
--- NOTE | 2017-08-13 20:00 | NUR ---
Awake, sitting up on chair. Assisted back to bed per request, transfers well. Appears anxious, c/o increased abdominal pain. Valium PO and IV Fentanyl given, reassured. Asking for Lasix, states is SOB though 100% saturation on 3L/min NC, on 80 mg PO dose daily at home. Lungs with basilar crackles. Brooks output concentrated sandrita. Dr. Feliz notified and order for 60 mg IV Lasix carried out. Please see CCU flowsheet for full assessment and clinical data.
[2017-08-13] MEDS ORDERED: FUROSEMIDE 20 MG/2 ML VIAL IV ONE (20:15)
[2017-08-14] VITALS (22 sets, daily range): BP systolic 124–156; BP diastolic 47–93
[2017-08-14] MEDS: FENTANYL CITRATE 100 MCG/2 ML AMPUL IV PRN ×5 (01:06→17:46)
[2017-08-14] MEDS: VANCOMYCIN IV 1 G in PREMIXED 0 EACH IV SCH ×2 (02:10→19:35)
[2017-08-14] MEDS: IV LACTATED RINGERS SOLUTION 1,000 ML IV PRN (02:34)
--- NOTE | 2017-08-14 04:00 | NUR ---
Lab had extreme difficulty with blood draw for MN PTT and thus the delay. PTT result 47.9 so Heparin continues to infuse at 1300 units/hr. OOB chair for another 2 hours, tolerated procedure well. No evidence of bleeding. Will continue to monitor closely.
[2017-08-14] MEDS: DIAZEPAM 5 MG TABLET PO PRN (04:27)
[2017-08-14] MEDS: PIPERACILLIN/TAZOBACTAM/D5W 50 ML IV SCH ×3 (06:15→18:40)
[2017-08-14] MEDS: HEPARIN/D5W DRIP 500 ML IV PRN (06:17)
[2017-08-14] MEDS: Z GUARD REMEDY PASTE 57 GM TUBE TOP SCH ×2 (07:47→21:13)
--- NOTE | 2017-08-14 09:00 | NUR ---
IVF stopped per pt request. Pt refusing IVF at this time and MD aware.
--- NOTE | 2017-08-14 09:26 | NUR ---
Spoke with JOYA Feliz on the telephone. Full report given. New orders received and carried out.
[2017-08-14] MEDS ORDERED: POTASSIUM CHLORIDE 20 MEQ TAB.PRT.SR PO ONE (09:30)
[2017-08-14] MEDS: FUROSEMIDE 80 MG TABLET PO SCH (09:35)
[2017-08-14 09:53] LABS: BASOPHILS % (AUTO) 0.3 % (0.0-2.0); EOSINOPHILS # (AUTO) 0.1 K/uL (0.0-0.7); EOSINOPHILS % (AUTO) 0.5 % (0.0-7.0); HEMATOCRIT 26.5 % (31.2-41.9); LYMPHOCYTES # (AUTO) 1.8 K/uL (20.0-40.0); LYMPHOCYTES % (AUTO) 12.7 % (20.5-51.5); MEAN CORPUSCULAR HEMOGLOBIN 28.3 uug (24.7-32.8); MEAN CORPUSCULAR HGB CONC 34 g/dL (32.3-35.6); MEAN CORPUSCULAR VOLUME 83.1 fL (75.5-95.3); MONOCYTES # (AUTO) 1.2 K/uL (2.0-10.0); MONOCYTES % (AUTO) 8.2 % (0.0-11.0); NEUTROPHILS # (AUTO) 11.3 K/uL (1.8-8.9); NEUTROPHILS % (AUTO) 78.3 % (38.5-71.5); PLATELET COUNT (AUTO) 166 K/uL (179-408); RED BLOOD CELL COUNT(AUTO) 3.19 MIL/uL (3.63-4.92); WHITE BLOOD COUNT (AUTO) 14.4 K/uL (3.8-11.8)
[2017-08-14 09:56] LABS: MAGNESIUM 1.8 mg/dL (1.8-2.4); PHOSPHOROUS 2.4 mg/dL (2.5-4.9)
[2017-08-14 09:58] LABS: POTASSIUM 2.4 mmol/L (3.5-5.1)
--- NOTE | 2017-08-14 10:00 | NUR ---
Clinical Pharmacy Note: Vancomycin Pharmacy to Dose Subjective: To continue vancomycin in this 47 y/o female for indication of "suspected infection.- leukocytosis" Objective: height 154 cm weight 83 kg BMI 30.6 BUN 28 (08/13) Scr 1.1 (08/13) Wbc 17.8 (08/13) temp 98.3 Assessment/Plan Will continue Vancomycin 1 gram IV every 17hrs(third dose tonight at 1900) and draw trough by 4th dose(due tomorrow am at 1130) for expected trough around 15. Will check trough tomorrow am and adjust as needed. Will follow
[2017-08-14 10:49] LABS: BAND % (MANUAL) 2 % (0-10); BASOPHILS % (MANUAL) 1 % (0-2); LYMPHOCYTES % (MANUAL) 17 % (20-40); MONOCYTES % (MANUAL) 7 % (2-10); NEUTROPHILS % (MANUAL) 73 % (42-75)
[2017-08-14] MEDS ORDERED: HEPARIN SODIUM,PORCINE 5,000 UNITS/ML VIAL IV PRN (14:45)
[2017-08-14 15:25] LABS: CREATININE 1.2 mg/dL (0.6-1.3)
[2017-08-14 15:29] LABS: POTASSIUM 2.4 mmol/L (3.5-5.1)
[2017-08-14] MEDS: HEPARIN SODIUM,PORCINE 5,000 UNITS/ML VIAL IV PRN (15:47)
[2017-08-14] MEDS ORDERED: NEUTRA PHOS PACKET PO ONE (16:15)
[2017-08-14] MEDS: POTASSIUM CHLORIDE 50 ML IV SCH ×3 (16:47→21:15)
[2017-08-14] MEDS: ZOLPIDEM 5 MG TABLET PO PRN (19:53)
[2017-08-14] MEDS: ACETAMINOPHEN 325 MG TABLET PO PRN (19:56)
--- NOTE | 2017-08-14 20:00 | NUR ---
Patient refusing IVF at this time. Teaching provided regarding risks/benefits, patient continues to refuse.
--- NOTE | 2017-08-14 21:45 | NUR ---
Patient complaining of shortness of breath. MD notified, orders received. MD also notified of patient's refusal for IVF, will continue to monitor. OK to d/c CVP monitoring at this time.
[2017-08-15] VITALS (22 sets, daily range): BP systolic 92–149; BP diastolic 25–79
--- NOTE | 2017-08-15 | NUR ---
Noted anxiety, easily redirected and calmed. Patient states, "I can't breath well" and describes shortness of breath, SpO2 WNL on face mask. RT called for PRN breathing treatment. Will continue to monitor. Addendum: 08/15/17 at 0026 by RICARDO SILVERIO RN Patient states "already feeling better"
[2017-08-15] MEDS: ALBUTEROL SULFATE 2.5 MG/3 ML NEBU NEB PRN (00:07)
[2017-08-15] MEDS: HEPARIN/D5W DRIP 500 ML IV PRN ×2 (00:13→19:50)
[2017-08-15] MEDS: POTASSIUM CHLORIDE 50 ML IV SCH ×3 (00:14→09:00)
[2017-08-15] MEDS: PIPERACILLIN/TAZOBACTAM/D5W 50 ML IV SCH ×5 (00:14→23:43)
[2017-08-15] MEDS: FENTANYL CITRATE 100 MCG/2 ML AMPUL IV PRN ×4 (02:58→11:19)
[2017-08-15] MEDS: DIAZEPAM 5 MG TABLET PO PRN ×2 (04:50→17:14)
--- NOTE | 2017-08-15 05:05 | NUR ---
Phleb at bedside for lab draw
[2017-08-15 05:39] LABS: BASOPHILS # (AUTO) 0.1 K/uL (0.0-8.0); BASOPHILS % (AUTO) 0.4 % (0.0-2.0); EOSINOPHILS # (AUTO) 0.1 K/uL (0.0-0.7); EOSINOPHILS % (AUTO) 0.6 % (0.0-7.0); HEMATOCRIT 26.7 % (31.2-41.9); HEMOGLOBIN 9.1 g/dL (10.9-14.3); LYMPHOCYTES # (AUTO) 1.6 K/uL (20.0-40.0); LYMPHOCYTES % (AUTO) 11.3 % (20.5-51.5); MEAN CORPUSCULAR HEMOGLOBIN 28.8 uug (24.7-32.8); MEAN CORPUSCULAR HGB CONC 34 g/dL (32.3-35.6); MEAN CORPUSCULAR VOLUME 84.7 fL (75.5-95.3); MONOCYTES % (AUTO) 6.7 % (0.0-11.0); NEUTROPHILS # (AUTO) 11.6 K/uL (1.8-8.9); PLATELET COUNT (AUTO) 183 K/uL (179-408); RED BLOOD CELL COUNT(AUTO) 3.15 MIL/uL (3.63-4.92); WHITE BLOOD COUNT (AUTO) 14.3 K/uL (3.8-11.8)
[2017-08-15 05:57] LABS: CREATININE 1.1 mg/dL (0.6-1.3); PHOSPHOROUS 2.3 mg/dL (2.5-4.9)
[2017-08-15 06:18] LABS: POTASSIUM 2.6 mmol/L (3.5-5.1)
--- NOTE | 2017-08-15 06:38 | NUR ---
Critically low K. Dr Garnica notified, orders received.
[2017-08-15] MEDS ORDERED: POTASSIUM CHLORIDE 50 ML IV SCH (06:45)
[2017-08-15] MEDS ORDERED: POTASSIUM CHLORIDE 20 MEQ TAB.PRT.SR PO ONE (06:45)
[2017-08-15] MEDS: Z GUARD REMEDY PASTE 57 GM TUBE TOP SCH ×2 (08:06→20:24)
[2017-08-15] MEDS: FUROSEMIDE 80 MG TABLET PO SCH (08:06)
--- NOTE | 2017-08-15 08:10 | NUR ---
Noted that pt.didn't have BM was offered to get laxatives,refused,prune juice was offered did finish 2 cups.
[2017-08-15] MEDS: ONDANSETRON 4 MG/2 ML VIAL IV PRN (08:52)
[2017-08-15] MEDS ORDERED: FUROSEMIDE 80 MG TABLET PO SCH (09:00)
--- NOTE | 2017-08-15 09:10 | NUR ---
Pt.was seen by with new orders.
[2017-08-15] MEDS ORDERED: NORMAL SALINE IV SCH (11:00)
[2017-08-15] MEDS ORDERED: POTASSIUM PHOSPHATE MM IV SCH (11:00)
[2017-08-15] MEDS: POTASSIUM PHOSPHATE MM 7.5 MMOL in IV DEXTROSE 5% 100 ML IV SCH ×2 (11:01→13:41)
[2017-08-15] MEDS ORDERED: FENTANYL CITRATE 100 MCG/2 ML AMPUL IV PRN (11:30)
--- NOTE | 2017-08-15 11:45 | NUR ---
Pt.was seen by DNP:Karl Feliz with new orders.
[2017-08-15] MEDS ORDERED: VANCOMYCIN IV 1 G in PREMIXED 0 EACH IV SCH (12:00)
[2017-08-15] MEDS ORDERED: POTASSIUM CHLORIDE 20 MEQ POWDER PACKET PO ONE (12:00)
[2017-08-15 12:09] LABS: ABG BASE EXCESS 7.5 mmol/L; ABG HCO3 31.8 mmol/L; ABG PCO2 44.1 mmHg (35.0-45.0); ABG PH 7.476 (7.350-7.450); ABG PO2 247.8 mmHg (75.0-100.0); ABG SITE LEFT RADIAL; ABG TOTAL HEMOGLOBIN 9.5 G/dL (12.0-16.0); COHb 2.5 % (0.5-1.5); MetHb 0.5 % (0.0-1.5); O2Hb 96.7 % (94.0-97.0)
--- NOTE | 2017-08-15 12:30 | NUR ---
Pt.was seen by AMY ALONSO MD with new orders.
[2017-08-15] MEDS: MAGNESIUM SULFATE/D5W 100 ML IV SCH ×2 (12:37→13:39)
--- NOTE | 2017-08-15 12:44 | NUR ---
PT ABG WAS DONE AND DUE TO RESULT AND MD ORDER. PT WAS PLACE ON 4LPM VIA NC. RN AWARE. PT HAS NO DISTRESS PT KEEP TAKING OFF O2 RN AWARE. WILL CONTINUE TO MONITOR PT.
--- NOTE | 2017-08-15 12:45 | NUR ---
PT I.S WAS DOEN BY RT AT THIS TIME PT IS WEAK BUT ATTEMPTED 6 TIME. PT BEST RESULT WAS AT 500L PT AWARE THAT SHE NEEDS TO DO IT EVERY HOUR X 10 TIME. WILL CONTINUE TO ASSIST PT WITH I.S.
--- NOTE | 2017-08-15 14:50 | NUR ---
RN NOTE Patient complained of pain 9/10 abdomen. Gave 25 mcg fentanyl ivp for pain. PT BP stable. patient tolerated pain medication
--- NOTE | 2017-08-15 15:00 | NUR ---
Pt.siting at bedside,was remained to use IS,pt.refused,told that will use later on.
--- NOTE | 2017-08-15 16:32 | NUR ---
Clinical Pharmacy Note: Vancomycin Pharmacy to Dose Subjective: To continue vancomycin in this 47 y/o female for indication of "suspected infection.- leukocytosis" Objective: height 154 cm weight 83 kg BMI 30.6 BUN 14 Scr 1.1 Wbc 14.3 temp 99 Assessment/Plan Patient is on Vancomycin 1 gram IV every 17hrs currently. Vancomycin trough was due today at 1130(level drawn) but sample was send out to [facility] due to EH machine is not working properly. Will follow the level once it is available. Addendum: 08/15/17 at 1656 by CHELY NOVAK ADM VANCOMYCIN TROUGH WAS 6.8 ON 11:30 SAMPLE(CAME OUT AT 16:30 DUE TO LAB ISSUE). WILL CHANGE DOSE TO 1250MG IV EVERY 12HRS(FIRST DOSE TODAY AT 1700) FOR TROUGH AROUND 15.
[2017-08-15] MEDS ORDERED: WARFARIN SODIUM 5 MG TABLET PO SCH (17:00)
[2017-08-15] MEDS: VANCOMYCIN IV 1,250 MG in IV NORMAL SALINE 500 ML IV SCH (17:08)
--- NOTE | 2017-08-15 18:55 | NUR ---
Pt. was transfer to [facility]209 under cardiac report,tolerated well,no s/s of distress.SBAR report given to Mariya/JIM Addendum: 08/15/17 at 1943 by CORI VILLEGAS RN was indorsed to recheck K+ was ordered.
[2017-08-15] MEDS: ZOLPIDEM 5 MG TABLET PO PRN (20:25)
--- NOTE | 2017-08-15 20:54 | NUR ---
Report received at bedside from off-going day shift RN, pt has been transferred from ICU to room 209. Awake, alert, oriented x 4, anxious but cooperative. IV Heparin drip infusing to R upper arm PICC at 28 ml/hr = 1400 units/hr (bag almost empty, changed with witness) and NS to other port at 3 ml/hr. Respirations even, unlabored on 4L NC, breath sounds diminished in bases, no shortness of breath noted or reported. ROBERT, blood drawn from PICC per protocol for post IV potassium infusion potassium level. Noted pt had a 4 beat run of v tach about 2049 without any report of dizziness, shortness of breath or pain. No bleeding noted, but pt does have ecchymosis to lower abdomen and wrist area, will monitor. Urethral rosales patent with 350 ml clear, yellow urine in metered rosales bag below bladder, no sediment noted. Pt states "I just want to have a good nights' sleep", asked if she would like her prn Ambien "yes" - given to help with sleep/comfort. Pt is currently on her cell phone, no acute changes/ or distress noted. Bed in low position, call light and personal items within reach. Monitoring for comfort/safety.
--- NOTE | 2017-08-15 21:41 | NUR ---
Pts' sister is now in room with patient talking with patient.
[2017-08-15] MEDS: OXYCODONE HCL 5 MG TABLET PO PRN (22:11)
[2017-08-16 04:00] VITALS: BP 116/60
[2017-08-16] MEDS ORDERED: VANCOMYCIN 1000 MG VIAL ONE (04:32)
[2017-08-16] MEDS ORDERED: VANCOMYCIN HCL 500 MG VIAL ONE (04:33)
[2017-08-16] MEDS: VANCOMYCIN IV 1,250 MG in IV NORMAL SALINE 500 ML IV SCH ×2 (04:50→16:00)
[2017-08-16] MEDS: OXYCODONE HCL 5 MG TABLET PO PRN ×2 (04:59→15:07)
--- NOTE | 2017-08-16 05:13 | NUR ---
Pt has slept well since initial administration of PO pain medication - about 6 hours. Awake now and requests "my pain medication" for abdominal pain 9 out of 10. Respirations even, unlabored, no shortness of breath noted. States "I feel a little better than I did yesterday" Bed in lowest position, call light with pt, pt requests "orange jello" given. Monitoring for tolerance, comfort and safety.
[2017-08-16] MEDS: PIPERACILLIN/TAZOBACTAM/D5W 50 ML IV SCH ×4 (06:24→23:55)
[2017-08-16 06:42] LABS: BASOPHILS # (AUTO) 0.1 K/uL (0.0-8.0); BASOPHILS % (AUTO) 0.4 % (0.0-2.0); EOSINOPHILS # (AUTO) 0.3 K/uL (0.0-0.7); EOSINOPHILS % (AUTO) 2.1 % (0.0-7.0); HEMATOCRIT 27.6 % (31.2-41.9); HEMOGLOBIN 9.3 g/dL (10.9-14.3); LYMPHOCYTES # (AUTO) 1.7 K/uL (20.0-40.0); LYMPHOCYTES % (AUTO) 10.1 % (20.5-51.5); MEAN CORPUSCULAR HEMOGLOBIN 28.7 uug (24.7-32.8); MEAN CORPUSCULAR HGB CONC 34 g/dL (32.3-35.6); MONOCYTES # (AUTO) 1.4 K/uL (2.0-10.0); MONOCYTES % (AUTO) 8.1 % (0.0-11.0); NEUTROPHILS # (AUTO) 13.3 K/uL (1.8-8.9); NEUTROPHILS % (AUTO) 79.3 % (38.5-71.5); PLATELET COUNT (AUTO) 197 K/uL (179-408); RED BLOOD CELL COUNT(AUTO) 3.24 MIL/uL (3.63-4.92); WHITE BLOOD COUNT (AUTO) 16.7 K/uL (3.8-11.8)
[2017-08-16 06:59] LABS: BILIRUBIN,TOTAL 2.5 mg/dL (0.2-1.0); CREATININE 1.1 mg/dL (0.6-1.3); MAGNESIUM 2.2 mg/dL (1.8-2.4); PHOSPHOROUS 2.6 mg/dL (2.5-4.9); POTASSIUM 3.4 mmol/L (3.5-5.1); TOTAL PROTEIN, SERUM 6.6 g/dL (6.4-8.2)
--- NOTE | 2017-08-16 07:30 | NUR ---
PATIENT IS AWAKE AND RESPONDING APPROPRIATELY, C/O OF PAIN 10/10 RIGHT SIDE OF ABDOMEN SR ON MONITOR, WARM AND DRY SKIN. STILL ON 4L ON NC SATURATING 100%. NOTED OCCASIONAL SOB ON EXERTION. CLOSELY MONITORED
[2017-08-16 08:00] VITALS: BP 116/57
[2017-08-16] MEDS: FUROSEMIDE 40 MG TABLET PO SCH (08:26)
[2017-08-16] MEDS: DIAZEPAM 5 MG TABLET PO PRN ×2 (08:27→21:46)
[2017-08-16] MEDS ORDERED: MORPHINE SULFATE 2 MG/1 ML DISP.SYRIN IV PRN (08:30)
[2017-08-16] MEDS ORDERED: BISACODYL 10 MG SUPP.RECT RC PRN (08:30)
[2017-08-16] MEDS ORDERED: MORPHINE SULFATE 2 MG/1 ML DISP.SYRIN IV ONE (08:30)
--- NOTE | 2017-08-16 08:30 | NUR ---
ANXIOUS AND RESTLESS MEDICATED WITH VALIUM PO PRN. OBSERVED
[2017-08-16] MEDS ORDERED: MORPHINE SULFATE 4 MG/1 ML DISP.SYRIN IV ONE (08:45)
[2017-08-16] MEDS: DOCUSATE SODIUM 100 MG CAPSULE PO SCH ×2 (08:53→20:52)
[2017-08-16] MEDS: Z GUARD REMEDY PASTE 57 GM TUBE TOP SCH ×2 (08:55→21:45)
--- NOTE | 2017-08-16 09:01 | NUR ---
HOSPITALIST NOTIFIED OF PAIN NOT RELIEVED BY OXYIR WITH ORDERS. MADE AWARE OF CODEINE ALLERGY AND SAID OK TO GIVE MORPHINE
[2017-08-16 09:03] LABS: BAND % (MANUAL) 8 % (0-10); EOSINOPHILS % (MANUAL) 2 % (0-8); LYMPHOCYTES % (MANUAL) 13 % (20-40); METAMYELOCYTES % 1 % (0-1); MONOCYTES % (MANUAL) 10 % (2-10); NEUTROPHILS % (MANUAL) 65 % (42-75)
[2017-08-16] MEDS: ALBUTEROL SULFATE 2.5 MG/3 ML NEBU NEB PRN ×2 (09:10→21:59)
[2017-08-16] MEDS: HEPARIN SODIUM,PORCINE 5,000 UNITS/ML VIAL IV PRN (09:36)
--- NOTE | 2017-08-16 10:16 | NUR ---
Clinical Pharmacy Note: Vancomycin Pharmacy to Dose Subjective: To continue vancomycin in this 47 y/o female for indication of "suspected infection.- leukocytosis" Objective: height 154 cm weight 83 kg BMI 30.6 BUN 16 Scr 1.1 Wbc 16.7 temp 99 Assessment/Plan Will continue same dose of vancomycin 1250mg IVPB q12h for today. 3rd dose is due today at 1700. Plan to order vanco trough level before 4th dose of this regimen (ordered for 08/17 at 0430- RN has been informed to hold 0500am dose if vanco trough level is above 20 mcg/ml). Pharmacist shall review the level in am & adjust the dose if needed. Will follow.
[2017-08-16] MEDS ORDERED: POTASSIUM CHLORIDE 20 MEQ TAB.PRT.SR PO ONE (11:00)
--- NOTE | 2017-08-16 11:15 | NUR ---
PT WAS ABLE TO AMBULATE WITH ASSISTANCE. PHYSICAL THERAPIST GUIDED THE PT AROUND THE MED-SURG UNIT ONCE. PT CAME BACK TO HER ROOM WITH NO IMMEDIATE S/S OF PAIN, DISTRESS, DISCOMFORT OF SOB. FEMALE FRIEND IN THE ROOM, WALKED WITH PT AND PHYSICAL THERAPIST.
[2017-08-16 11:36] VITALS: BP 112/69
--- NOTE | 2017-08-16 12:35 | NUR ---
PT IS SITTING UPRIGHT IN NEAR BY CHAIR, TOLERATING WELL. NO IMMEDIATE S/S OF SOB, OR DISTRESS. PT IS STATING 8/10 PAIN ON THE RIGHT SIDE OF HER ABDOMEN
[2017-08-16] MEDS: MORPHINE SULFATE 4 MG/1 ML DISP.SYRIN IV PRN ×2 (13:10→19:56)
--- NOTE | 2017-08-16 13:26 | NUR ---
PT WAS PLACED BACK TO BED FROM CHAIR. NO IMMEDIATE S/S OF SOB. PT HAS REMOVED HER NC AND IS SATING AT 98%-99% RA AND HR OF 83. REMOVED 900ML OF TEA COLOR URINE
--- NOTE | 2017-08-16 13:46 | NUR ---
FEMALE FRIEND IN THE ROOM AND IS GIVING THE PATIENT A FACIAL. PT SEEMS UP BEAT AT THIS TIME
[2017-08-16] MEDS: HEPARIN/D5W DRIP 500 ML IV PRN (14:57)
--- NOTE | 2017-08-16 15:15 | NUR ---
NOTED PT PASSING GAS
[2017-08-16 15:33] VITALS: BP 95/52
--- NOTE | 2017-08-16 15:34 | NUR ---
PT IS PASSING GAS AND SITTING ON BEDSIDE COMMODE. PT IS ATTEMPTING TO HAVE A BM
--- NOTE | 2017-08-16 15:47 | NUR ---
SEEN BY ROLL FORMING MACHINE SET UP OPERATOR FOR FOLLOW-UP WITH ORDERS. WILL CONTINUE LICHA OBSERVATION TILL FURTHER ORDER
--- NOTE | 2017-08-16 16:20 | NUR ---
CRITICAL LABS REPORTED: aPTT GREATER THAN 150. IMMEDIATELY HELD HEPARIN DRIP, CONTACTED MATERIAL HAULER ON THE UNIT. ORDERS TO RE-DRAW LABS FOR APTT STAT, FROM A PERIPHERAL IV INSERTION. ORDERS NOTED AND CARRIED OUT.
[2017-08-16] MEDS ORDERED: WARFARIN SODIUM 3 MG TABLET PO SCH (17:00)
[2017-08-16] MEDS ORDERED: WARFARIN SODIUM 5 MG TABLET PO SCH (17:00)
--- NOTE | 2017-08-16 17:09 | NUR ---
PT IS NOTED TO STILL HAVE MARKED BRUISING ACROSS ANTERIOR LOWER ABDOMINAL AREA THAT EXTENDS TO THE LOWER BACK. PT IS SLEEPING IN A SEMI FOWLERS POSITION WITH NO IMMEDIATE S/S OF PAIN, DISTRESS, DISCOMFORT OR SOB. PT IS NOT ON OXYGEN OF RIGHT NOW
--- NOTE | 2017-08-16 18:26 | NUR ---
PATIENT VERBALIZING LESS PAIN AND DISCOMFORT AFTER DULCOLAX SUPPOSITORY WITH MODERATE AMOUNT OF BROWNISH STOOL AND FLATUS. REMAINS SR ON MONITOR SATURATING 97% ON RA. INCENTIVE SPIROMETER AND AMBULATION REINFORCED TOLERATED. CONTINUE LICHA OBSERVATION PER WORK CHECKER
[2017-08-16 20:41] VITALS: BP 106/64
[2017-08-17] VITALS: BP 110/64
--- NOTE | 2017-08-17 00:12 | NUR ---
PT VERBALIZED FEELING 'WARM'. TEMP NOTED 100.3 AND 99.7. PT OFFERED TYLENOL 650MG. STATED SHE ALSO WANTS HER AMBIEN. NOTED AND CARRIED OUT. LAB DRAWN AT THIS TIME FOR PT/PTT LEVELS. WILL CONTINUE TO MONITOR.
[2017-08-17] MEDS: ZOLPIDEM 5 MG TABLET PO PRN (00:16)
[2017-08-17] MEDS: ACETAMINOPHEN 325 MG TABLET PO PRN (00:16)
--- NOTE | 2017-08-17 01:30 | NUR ---
PTT 58.7. NO CHANGE IN HEPARIN RATE PER MD PROTOCOL. NOTED AND CARRIED OUT. WILL CONTINUE TO MONITOR.
[2017-08-17 04:00] VITALS: BP 111/65
[2017-08-17] MEDS: MORPHINE SULFATE 4 MG/1 ML DISP.SYRIN IV PRN ×2 (04:25→08:53)
[2017-08-17] MEDS: DIAZEPAM 5 MG TABLET PO PRN (05:02)
[2017-08-17] MEDS: PIPERACILLIN/TAZOBACTAM/D5W 50 ML IV SCH ×2 (05:15→11:21)
--- NOTE | 2017-08-17 05:30 | NUR ---
PT'S FULLING MACHINE OPERATOR IS SINUS RHYTHM WITH PVCS. NO EVIDENCE OF BLEEDING PRESENT. BRUISES STILL PRESENT TO ABDOMINAL AREA. HEPARIN DRIP IS STILL MAINTAINED AT 1700U/HR. PT IS ABLE TO MAKE NEEDS KNOWN. NO ADVERSE EFFECT TO ZOSYN IV ATB THERAPY. WILL CONTINUE TO MONITOR. REMINDED PT REQUEST FOR ASSISTANCE IF NEEDED. V/S ARE WNL.
[2017-08-17] MEDS: OXYCODONE HCL 5 MG TABLET PO PRN (06:31)
[2017-08-17] MEDS: VANCOMYCIN IV 1,250 MG in IV NORMAL SALINE 500 ML IV SCH (06:31)
[2017-08-17 07:16] LABS: CREATININE 1.2 mg/dL (0.6-1.3); MAGNESIUM 2.2 mg/dL (1.8-2.4); PHOSPHOROUS 3.5 mg/dL (2.5-4.9); POTASSIUM 3.8 mmol/L (3.5-5.1)
[2017-08-17 07:35] LABS: BASOPHILS # (AUTO) 0.1 K/uL (0.0-8.0); BASOPHILS % (AUTO) 0.4 % (0.0-2.0); EOSINOPHILS # (AUTO) 0.7 K/uL (0.0-0.7); EOSINOPHILS % (AUTO) 5.1 % (0.0-7.0); HEMATOCRIT 26.9 % (31.2-41.9); HEMOGLOBIN 9.3 g/dL (10.9-14.3); LYMPHOCYTES # (AUTO) 1.5 K/uL (20.0-40.0); LYMPHOCYTES % (AUTO) 10.4 % (20.5-51.5); MEAN CORPUSCULAR HEMOGLOBIN 29.6 uug (24.7-32.8); MEAN CORPUSCULAR HGB CONC 34 g/dL (32.3-35.6); MONOCYTES # (AUTO) 1.1 K/uL (2.0-10.0); MONOCYTES % (AUTO) 7.8 % (0.0-11.0); NEUTROPHILS # (AUTO) 11.2 K/uL (1.8-8.9); NEUTROPHILS % (AUTO) 76.3 % (38.5-71.5); PLATELET COUNT (AUTO) 240 K/uL (179-408); RED BLOOD CELL COUNT(AUTO) 3.13 MIL/uL (3.63-4.92); WHITE BLOOD COUNT (AUTO) 14.6 K/uL (3.8-11.8)
[2017-08-17 07:38] VITALS: BP 101/62
--- NOTE | 2017-08-17 07:51 | NUR ---
Received pt in bed awake, alert and oriented times 4. Pt states she is ready to leave. No immediate s/s of pain, distress, discomfort or SOB. Pt is still on Heparin drip, pt is on RA.
[2017-08-17] MEDS: HEPARIN/D5W DRIP 500 ML IV PRN (08:43)
[2017-08-17] MEDS: FUROSEMIDE 40 MG TABLET PO SCH (08:50)
[2017-08-17] MEDS: DOCUSATE SODIUM 100 MG CAPSULE PO SCH (08:50)
[2017-08-17] MEDS: Z GUARD REMEDY PASTE 57 GM TUBE TOP SCH (08:54)
--- NOTE | 2017-08-17 09:00 | NUR ---
Pt states 8/10 pain, morphine given. Noted pt is wheezing upon expiratory, respiratory called for a breathing treatment. Pt is able to verbalize needs. 96% RA HR 77
[2017-08-17] MEDS: ALBUTEROL SULFATE 2.5 MG/3 ML NEBU NEB PRN (09:10)
[2017-08-17 09:51] LABS: BAND % (MANUAL) 2 % (0-10); EOSINOPHILS % (MANUAL) 7 % (0-8); LYMPHOCYTES % (MANUAL) 10 % (20-40); MONOCYTES % (MANUAL) 5 % (2-10); MYELOCYTES % 4 % (0-0); NEUTROPHILS % (MANUAL) 72 % (42-75)
--- NOTE | 2017-08-17 11:14 | NUR ---
Pt seen by CONDUIT BENDER with orders: JASVIR Brooks, discharge pending for today and will teach pt how to inject Lovenox at home.
[2017-08-17] MEDS ORDERED: ENOX40DI SQ (11:21)
[2017-08-17] MEDS ORDERED: HYDR-3326 PO (11:22)
[2017-08-17 11:31] VITALS: BP 114/58
--- NOTE | 2017-08-17 11:59 | NUR ---
Brooks removed without complications as ordered. Pt is now voiding by bedside commode on her own. Addendum: 08/17/17 at 1232 by BURAK LOVE RN Pt was also informed on how to use Lovenox injections. Verbalized and demonstrated the abdominal quadrants, how to disinfect the abdomen quadrants that's going to be used, informed her to alternate injections site and verbalized how to inject Lovenox. Pt was able to return demonstration and was able repeat and verbalize instructions
--- NOTE | 2017-08-17 13:00 | NUR ---
SEEN BY HOSPITALIST FOR CARDIO AND MEDICAL FOR FOLLOW-UP WITH DC ORDER
--- NOTE | 2017-08-17 13:20 | NUR ---
PATIENT VOIDING WITHOUT DIFFICULTY
--- NOTE | 2017-08-17 14:01 | NUR ---
Clinical Pharmacy Note: Vancomycin Pharmacy to Dose Subjective: To continue vancomycin in this 47 y/o female for indication of "suspected infection.- leukocytosis" Objective: height 154 cm weight 83 kg BMI 30.6 BUN 17 Scr 1.2 Wbc 14.6 temp 99.1 Vancomycin trough:11 today at 0430 Assessment/Plan Will change vancomycin to 1250mg IVPB q10h (second dose today at 1500)and draw trough by 4th dose(ordered for tomorrow at 1030) for expected trough around 15. Will monitor daily.
--- NOTE | 2017-08-17 14:40 | NUR ---
DCD HOME STABLE WITH RX AND FOLLOW-UP INSTRUCTION GIVEN. PT WILL MAKE APPT TO SEE DR JOHNSON IN 2 WKS. PT WILL CALL MD FOR APPT PENDING INSURANCE M/M
[2017-08-17] MEDS ORDERED: VANCOMYCIN IV 1,250 MG in IV NORMAL SALINE 500 ML IV SCH (15:00)
== END 2017-08-17 14:40 | disposition home health service (06) | DRG 351 ==
LOC: ER 15:08 → MED 19:51 → CCU 08-11 11:30 → TELE-TD 08-15 18:56
PROVIDERS: ADMIT Nurse Practitioner Acute Care; ATTEND Nurse Practitioner Acute Care
PROC: 30233K1 Transfusion of Nonautologous Frozen Plasma into Peripheral Vein, Percutaneous Approach (ICD-10-PCS; principal; 2017-08-11)
PROC: 02HV33Z Insertion of Infusion Device into Superior Vena Cava, Percutaneous Approach (ICD-10-PCS; principal; 2017-08-11)
PROC: 30233N1 Transfusion of Nonautologous Red Blood Cells into Peripheral Vein, Percutaneous Approach (ICD-10-PCS; principal; 2017-08-11)
DX: M79.81 Nontraumatic hematoma of soft tissue (principal); N17.0 Acute kidney failure with tubular necrosis; R65.11 Systemic inflammatory response syndrome (SIRS) of non-infectious origin with acute organ dysfunction; D62 Acute posthemorrhagic anemia; E87.1 Hypo-osmolality and hyponatremia; D68.8 Other specified coagulation defects; I11.0 Hypertensive heart disease with heart failure; I50.32 Chronic diastolic (congestive) heart failure; T45.515A Adverse effect of anticoagulants, initial encounter; Y92.89 Other specified places as the place of occurrence of the external cause; E78.5 Hyperlipidemia, unspecified; Z95.2 Presence of prosthetic heart valve; Z79.01 Long term (current) use of anticoagulants; I05.0 Rheumatic mitral stenosis; D72.829 Elevated white blood cell count, unspecified; E87.5 Hyperkalemia; K21.9 Gastro-esophageal reflux disease without esophagitis; E87.6 Hypokalemia; G47.36 Sleep related hypoventilation in conditions classified elsewhere; E86.1 Hypovolemia
CPT/HCPCS: 36415; 36600; 70030-TC; 71045; 76770; 83690; 83735; 84100; 84132; 84156; 84300; 84443; 84703; 85018; 85025; 85610; 85730; 86850; 86900; 86901; 86920; 87086; 93005; 93307; 94640; 94664; 97110; 97116; 97530; A4663; J1644; J1940; J2060; J2270; J2405; J2543; J3010; J3370; J3475; J3480; J3490; J7030; J7040; J7050; J7060; J7120; P9016-BL; P9017-BL; P9021

== ENCOUNTER 2017-09-10 00:14 | Emergency (ER) | payer OTHER ==
[~2017-09-10] VITALS: Ht 160 cm; Wt 70.8 kg
[~2017-09-10 00:14] MED LIST: ENOX40DI SQ; FURO80TA87 PO; HYDR-3326 PO; POTA10TA15 PO; WARF-58 PO
--- NOTE | 2017-09-10 00:28 | NUR ---
DR CRISTOPHER SALAZAR MD AT BEDSIDE FOR MSE.
[2017-09-10] MEDS ORDERED: HYDROCODONE/APAP 5-325MG TABLET PO ONE (00:30)
[2017-09-10] MEDS ORDERED: HYDROCODONE/APAP 5-325MG TABLET ONE (00:41)
--- NOTE | 2017-09-10 01:10 | NUR ---
Patient discharged to home in stable conditon. Written and verbal after care instructions given. Patient verbalizes understanding of instructions. Pt ambulated from ER w/ steady gait. No distress noted. Pt states she "already feels the meds helping." Pt took all personal belongings.
[2017-09-10 01:17] VITALS: BP 148/82
== END 2017-09-10 01:19 | disposition home or self-care (01) ==
LOC: ER 00:18
DX: L03.115 Cellulitis of right lower limb (principal); I11.0 Hypertensive heart disease with heart failure; I50.9 Heart failure, unspecified; Z88.5 Allergy status to narcotic agent; Z90.49 Acquired absence of other specified parts of digestive tract; Z79.891 Long term (current) use of opiate analgesic; Z79.01 Long term (current) use of anticoagulants; Z79.899 Other long term (current) drug therapy
CPT/HCPCS: A4663

== ENCOUNTER 2017-11-25 21:18 | Emergency (ER) | payer OTHER ==
[~2017-11-25] VITALS: Ht 160 cm; Wt 70.8 kg
--- NOTE | 2017-11-25 21:44 | NUR ---
Patient discharged to home in stable conditon. Written and verbal after care instructions given. Patient verbalizes understanding of instructions.
[2017-11-25 21:45] VITALS: BP 141/77
== END 2017-11-25 21:46 | disposition home or self-care (01) ==
LOC: ER 21:20
DX: Z76.0 Encounter for issue of repeat prescription (principal); I11.0 Hypertensive heart disease with heart failure; I50.9 Heart failure, unspecified; Z90.49 Acquired absence of other specified parts of digestive tract; Z88.5 Allergy status to narcotic agent; Z79.891 Long term (current) use of opiate analgesic; Z79.01 Long term (current) use of anticoagulants; Z79.899 Other long term (current) drug therapy
CPT/HCPCS: 99283; A4663

== ENCOUNTER 2018-03-07 02:25 | Emergency (ER) | payer OTHER ==
[~2018-03-07] VITALS: Ht 160 cm; Wt 72.6 kg
--- NOTE | 2018-03-07 02:51 | NUR ---
PT A/OX4, RESPONSIVE TO VERBAL AND TACTILE STIMULI. PT PRESENTS TO THE ER FOR MED REFILL. PT DENIES ANY ACUTE DISTRESS. DENIES PAIN, C/P, SOB, N/V/D, DIZZINESS, HEADACHE.
[2018-03-07 03:03] VITALS: BP 150/80
--- NOTE | 2018-03-07 03:03 | NUR ---
Patient discharged to home in stable conditon. Written and verbal after care instructions given. Patient verbalizes understanding of instructions. PT D/C HOME W/ PRESCRIPTIONS. ALL BELONGINGS W/ PT. PT SELF-AMBULATED WITHOUT DIFFICULTY.
== END 2018-03-07 03:04 | disposition home or self-care (01) ==
LOC: ER 02:27
DX: Z76.0 Encounter for issue of repeat prescription (principal); I11.0 Hypertensive heart disease with heart failure; I50.9 Heart failure, unspecified; F17.200 Nicotine dependence, unspecified, uncomplicated; Z88.5 Allergy status to narcotic agent; Z90.49 Acquired absence of other specified parts of digestive tract
CPT/HCPCS: A4663

== ENCOUNTER 2019-05-31 22:32 | Emergency (ER) | payer OTHER ==
[~2019-05-31] VITALS: Ht 160 cm; Wt 74.8 kg
[2019-05-31] MEDS ORDERED: ALBU8.5H8 IH (22:44)
[2019-05-31] MEDS ORDERED: IPRATROPIUM BROMIDE 0.5 MG/2.5 ML NEBU NEB ONE (23:00)
[2019-05-31] MEDS ORDERED: ALBUTEROL SULFATE 2.5 MG/3 ML NEBU NEB ONE (23:00)
[2019-05-31] MEDS ORDERED: NITROGLYCERIN 0.4 MG/TAB BOTTLE SL ONE ×2 (23:00→23:12)
[2019-05-31] MEDS ORDERED: IV NORMAL SALINE 500 ML BAG IV ONE (23:00)
[2019-05-31] MEDS ORDERED: LORAZEPAM 0.5 MG TABLET PO ONE (23:00)
[2019-05-31] MEDS ORDERED: LORAZEPAM 1 MG TABLET ONE (23:12)
[2019-05-31] MEDS ORDERED: ALBUTEROL SULFATE 2.5 MG/3 ML NEBU ONE (23:15)
[2019-05-31] MEDS ORDERED: IPRATROPIUM BROMIDE 0.5 MG/2.5 ML NEBU ONE (23:15)
[2019-05-31 23:17] LABS: BASOPHILS # (AUTO) 0.1 K/uL (0.0-8.0); BASOPHILS % (AUTO) 0.9 % (0.0-2.0); EOSINOPHILS # (AUTO) 0.2 K/uL (0.0-0.7); EOSINOPHILS % (AUTO) 2.3 % (0.0-7.0); HEMATOCRIT 42.6 % (31.2-41.9); HEMOGLOBIN 14.5 g/dL (10.9-14.3); LYMPHOCYTES # (AUTO) 2.9 K/uL (20.0-40.0); LYMPHOCYTES % (AUTO) 31.4 % (20.5-51.5); MEAN CORPUSCULAR HEMOGLOBIN 30.2 uug (24.7-32.8); MEAN CORPUSCULAR HGB CONC 34 g/dL (32.3-35.6); MEAN CORPUSCULAR VOLUME 88.6 fL (75.5-95.3); MONOCYTES # (AUTO) 0.7 K/uL (2.0-10.0); MONOCYTES % (AUTO) 7.9 % (0.0-11.0); NEUTROPHILS # (AUTO) 5.3 K/uL (1.8-8.9); NEUTROPHILS % (AUTO) 57.5 % (38.5-71.5); PLATELET COUNT (AUTO) 221 K/uL (179-408); RED BLOOD CELL COUNT(AUTO) 4.81 MIL/uL (3.63-4.92); WHITE BLOOD COUNT (AUTO) 9.2 K/uL (3.8-11.8)
[2019-05-31 23:23] LABS: CREATININE 1.2 mg/dL (0.6-1.3); POTASSIUM 3.8 mmol/L (3.5-5.1)
[2019-05-31 23:36] LABS: BILIRUBIN,DIRECT 0.1 mg/dL (0.0-0.2); BILIRUBIN,TOTAL 0.4 mg/dL (0.2-1.0); TOTAL PROTEIN, SERUM 7.7 g/dL (6.4-8.2)
--- NOTE | 2019-05-31 23:40 | NUR ---
Pt states chest discomfort is now 0/10 after 2 sublingual nitro.
--- NOTE | 2019-05-31 23:49 | NUR ---
Dr. Chao at bedside for re-evaluation. Pt appears in no distress. Denies any pain or discomfort. States that she feels better.
--- NOTE | 2019-06-01 | NUR ---
IV removed. Catheter intact and site benign. Pressure and 4x4 gauze applied to site. No bleeding noted.
[2019-06-01 00:02] LABS: *BILIRUBIN,URIN NEGATIVE (NEGATIVE); *BLOOD, URINE NEGATIVE (NEGATIVE); *CLARITY,URINE CLEAR (CLEAR); *COLOR,URINE YELLOW (YELLOW); *KETONES,URINE NEGATIVE (NEGATIVE); *UROBILINOGEN,URINE 0.2 E.U./dl (NORMAL); LEUKOCYTE ESTERASE ,URINE NEGATIVE (NEGATIVE); NITRITE, URINE NEGATIVE (NEGATIVE); UGLUCOSE NEGATIVE (NEGATIVE)
--- NOTE | 2019-06-01 00:08 | NUR ---
Patient discharged to home in stable conditon. Written and verbal after care instructions given. Patient verbalizes understanding of instructions. Pt walked out of ER in stable condition. Pt states she feels so much better. Denies any symptoms at this time. Vital signs stable. Respirations even + unlabored.
[2019-06-01 00:10] VITALS: BP 128/63
== END 2019-06-01 00:10 | disposition home or self-care (01) ==
LOC: ER 22:33
DX: R06.02 Shortness of breath (principal); M25.511 Pain in right shoulder; I11.0 Hypertensive heart disease with heart failure; I50.9 Heart failure, unspecified; F17.200 Nicotine dependence, unspecified, uncomplicated; Z76.0 Encounter for issue of repeat prescription; Z88.5 Allergy status to narcotic agent; Z79.01 Long term (current) use of anticoagulants; Z79.899 Other long term (current) drug therapy
CPT/HCPCS: 36415; 70030-TC; 71045; 85025; 85730; 87400; 93005; A4663; J3590; J7040

== ENCOUNTER 2020-12-07 00:03 | Emergency (ER) | payer OTHER ==
[~2020-12-07] VITALS: Ht 160 cm; Wt 77.1 kg
[~2020-12-07 00:03] MED LIST changes: +ALBU8.5H8 IH; -HYDR-3326 PO
--- NOTE | 2020-12-07 00:35 | NUR ---
MD Lyons in room to do MSE.
--- NOTE | 2020-12-07 00:57 | NUR ---
U/S called to come perform U/S on patient.
--- NOTE | 2020-12-07 01:02 | NUR ---
X-ray tech at bedside to take x-ray.
--- NOTE | 2020-12-07 01:02 | NUR ---
construction technology instructor at bedside to draw blood of patient.
[2020-12-07 01:17] LABS: HEMATOCRIT 42.5 % (31.2-41.9); MEAN CORPUSCULAR HEMOGLOBIN 30.7 uug (24.7-32.8); PLATELET COUNT (AUTO) 235 K/uL (179-408)
[2020-12-07 01:25] LABS: CREATININE 1.3 mg/dL (0.6-1.3); POTASSIUM 3.9 mmol/L (3.5-5.1)
--- NOTE | 2020-12-07 02:00 | NUR ---
Patient is resting comfortably in bed upright, no acute distress noted.
[2020-12-07] MEDS ORDERED: ACETAMINOPHEN ES 500 MG TABLET PO STA (02:06)
[2020-12-07] MEDS ORDERED: ACETAMINOPHEN ES 500 MG TABLET ONE (02:37)
[2020-12-07 03:00] VITALS: BP 146/82
--- NOTE | 2020-12-07 03:00 | NUR ---
Patient discharged to home in stable condition. Written and verbal after care instructions given. Patient verbalizes understanding of instructions. Stressed follow up or return to ER for worsening s/s. Patient ambulates with steady gait, V/S stable, received discharge paperwork/labs/US & X-ray, and left with all personal belongings.
== END 2020-12-07 03:00 | disposition home or self-care (01) ==
LOC: ER 00:06
DX: G89.29 Other chronic pain (principal); M79.671 Pain in right foot; M79.89 Other specified soft tissue disorders; Z79.01 Long term (current) use of anticoagulants; Z95.2 Presence of prosthetic heart valve; Z86.73 Personal history of transient ischemic attack (TIA), and cerebral infarction without residual deficits; J45.909 Unspecified asthma, uncomplicated; I50.9 Heart failure, unspecified; Z79.899 Other long term (current) drug therapy; I27.20 Pulmonary hypertension, unspecified; Z90.49 Acquired absence of other specified parts of digestive tract
CPT/HCPCS: 36415; 73630; 83735; 85025; 85730; A4663; A9150

== ENCOUNTER 2024-05-22 01:41 | Emergency (ER) | payer BC, OTHER ==
[~2024-05-22] VITALS: Ht 157.5 cm; Wt 71.2 kg
[2024-05-22 03:13] LABS: BASOPHILS # (AUTO) 0.1 K/UL (0.0-0.2); BASOPHILS % (AUTO) 0.8 % (0.0-2.0); EOSINOPHILS # (AUTO) 0.2 K/uL (0.0-0.7); EOSINOPHILS % (AUTO) 2.6 % (0.0-7.0); HEMATOCRIT 39.8 % (31.2-41.9); HEMOGLOBIN 13.6 g/dL (10.9-14.3); LYMPHOCYTES % (AUTO) 22.2 % (20.5-51.5); MEAN CORPUSCULAR HEMOGLOBIN 29.1 uug (24.7-32.8); MEAN CORPUSCULAR HGB CONC 34 g/dL (32.3-35.6); MEAN CORPUSCULAR VOLUME 85.4 fL (75.5-95.3); MONOCYTES # (AUTO) 0.6 K/uL (0.1-1.30); NEUTROPHILS % (AUTO) 67.4 % (38.5-71.5); PLATELET COUNT (AUTO) 252 K/uL (179-408); RED BLOOD CELL COUNT(AUTO) 4.66 MIL/uL (3.63-4.92); RED CELL DISTRIBUTION WIDTH 13.4 % (12.3-17.7)
[2024-05-22 03:20] LABS: DIFFERENTIAL COMMENT 1
[2024-05-22 03:27] LABS: RETICULOCYTE COUNT 1.7 % (0.5-2.2)
[2024-05-22 03:43] LABS: ALANINE AMINOTRANSFERASE 33 U/L (14-59); ALBUMIN 3.3 g/dL (3.4-5.0); ALKALINE PHOSPHATASE 104 U/L (50-136); ASPARTATE AMINOTRANSFERASE 28 U/L (15-37); BILIRUBIN,DIRECT 0.2 mg/dL (0.0-0.2); BILIRUBIN,TOTAL 0.6 mg/dL (0.2-1.0); CALCIUM 8.8 mg/dL (8.5-10.1); CARBON DIOXIDE 25 mmol/L (21-32); CHLORIDE 105 mmol/L (98-107); GLUCOSE 103 mg/dL (74-106); POTASSIUM 3.3 mmol/L (3.5-5.1); SODIUM SERUM 139 mmol/L (136-145); TOTAL PROTEIN, SERUM 7.9 g/dL (6.4-8.2); UREA NITROGEN, BLOOD 26 mg/dL (7-18)
[2024-05-22 05:52] VITALS: BP 152/78; O2SAT 96
[2024-05-22] MEDS ORDERED: POTA10CA43 PO (06:08)
[2024-05-22] MEDS ORDERED: FURO-152 PO (06:08)
== END 2024-05-22 05:52 | disposition home or self-care (01) ==
LOC: ER 01:55
DX: R07.9 Chest pain, unspecified (principal); R14.0 Abdominal distension (gaseous); E78.5 Hyperlipidemia, unspecified; I11.0 Hypertensive heart disease with heart failure; I27.20 Pulmonary hypertension, unspecified; I50.32 Chronic diastolic (congestive) heart failure; J45.909 Unspecified asthma, uncomplicated; F17.200 Nicotine dependence, unspecified, uncomplicated; Z79.01 Long term (current) use of anticoagulants; Z79.899 Other long term (current) drug therapy; Z86.73 Personal history of transient ischemic attack (TIA), and cerebral infarction without residual deficits; Z90.49 Acquired absence of other specified parts of digestive tract; Z95.2 Presence of prosthetic heart valve; Z98.890 Other specified postprocedural states; Z60.2 Problems related to living alone; Z88.5 Allergy status to narcotic agent
CPT/HCPCS: 70030-TC; 71045; 84484; 85025; 85651; 85730; A4606; A4663